=== PATIENT | female | born 1965 | race Caucasian/White ===

== ENCOUNTER 2017-10-06 09:56 | Day surgery (SDC) | payer OTHER ==
[~2017-10-06] VITALS: Ht 155 cm; Wt 89.3 kg
[2017-10-06] VITALS (12 sets, daily range): BP systolic 107–132; BP diastolic 50–87; PULSE 56–88; TEMP 97.8–98.7
[2017-10-06] MEDS ORDERED: TOPROL XL 25MG25 MG PO (10:15)
[2017-10-06] MEDS ORDERED: ASPIRIN E.C. 8181 MG PO (10:16)
[2017-10-06] MEDS ORDERED: HCTZ 25MG TAB25 MG PO (10:16)
[2017-10-06] MEDS ORDERED: NEURONTIN300 MG/CAP PO (10:18)
[2017-10-06] MEDS ORDERED: KLOR-CON SPRIN10 MEQ PO (10:18)
[2017-10-06] MEDS ORDERED: ALLEGRA ALLERG180 MG PO (10:19)
[2017-10-06] MEDS ORDERED: FLONASEALLERGY NS (10:19)
[2017-10-06] MEDS ORDERED: REFRESH CELLUVI1 SOL OP (10:20)
[2017-10-06] MEDS ORDERED: NEXIUM 40MG40 MG PO (10:20)
[2017-10-06] MEDS ORDERED: VITAMIN B12 1541 TAB PO (10:21)
[2017-10-06] MEDS ORDERED: CHEWABLE-V1 TAB.CHEW PO (10:22)
[2017-10-06] MEDS ORDERED: MOTRIN 800800 MG/TAB PO (10:23)
[2017-10-06] MEDS ORDERED: IMITREX50 MG PO (10:23)
[2017-10-06 11:16] LABS: HEMATOCRIT 41.5 % (37.0-47.0); MEAN CELL VOLUME 83 fl (80.0-100.0); MEAN CORPUSCULAR HEMOGLOBIN 28 pg (27.0-31.0); MEAN CORPUSCULAR HGB CONC 34 g/dl (33.0-37.0); MEAN PLATELET VOLUME 9.4 fl (7.4-10.4); PLATELET COUNT 307 K/mm3 (130-400); RED BLOOD COUNT 4.99 M/mm3 (4.10-5.30); REDCELL DISTRIBUTION WIDTH-CV 15.3 % (11.5-14.5)
[2017-10-06 11:23] LABS: PROTHROMBIN TIME 11.1 SECONDS (9.7-12.8)
[2017-10-06 11:27] LABS: CREATININE, serum 0.73 mg/dL (0.52-1.25); POTASSIUM 3.8 mmol/L (3.4-5.0)
== END 2017-10-06 18:08 | disposition home or self-care (01) ==
LOC: COL.CAR 09:56
PROVIDERS: Internal Medicine Cardiovascular Disease
DX: R07.89 Other chest pain (principal); R06.00 Dyspnea, unspecified; I10 Essential (primary) hypertension; R53.83 Other fatigue; Z82.49 Family history of ischemic heart disease and other diseases of the circulatory system; M16.10 Unilateral primary osteoarthritis, unspecified hip
CPT/HCPCS: J2250; Q9967

== ENCOUNTER → 2018-01-04 | Outpatient (CLI) | payer OTHER ==
[~2018-01-04] MED LIST: ALLEGRA ALLERG180 MG PO; ASPIRIN E.C. 8181 MG PO; CHEWABLE-V1 TAB.CHEW PO; FLONASEALLERGY NS; HCTZ 25MG TAB25 MG PO; IMITREX50 MG PO; KLOR-CON SPRIN10 MEQ PO; MOTRIN 800800 MG/TAB PO; NEURONTIN300 MG/CAP PO; NEXIUM 40MG40 MG PO; REFRESH CELLUVI1 SOL OP; TOPROL XL 25MG25 MG PO; VITAMIN B12 1541 TAB PO
== END ==
LOC: COL.PUL 12:45
DX: R06.02 Shortness of breath (principal)
CPT/HCPCS: J7674

== ENCOUNTER → 2019-03-06 | Outpatient (CLI) | payer OTHER | LOC: COL.RAD 11:48 | DX: R06.00 Dyspnea, unspecified (principal) | CPT/HCPCS: A9540; A9567 ==